=== PATIENT | female | born 1935 | race Caucasian/White ===

== ENCOUNTER 2018-11-01 07:35 | Emergency (ER) | payer MEDICARE, BC ==
[~2018-11-01] VITALS: Ht 149.9 cm; Wt 60.0 kg
[~2018-11-01 07:35] MED LIST: CELEXA; CEPH-443 PO; DIOVAN; LASIX; LIPITOR; NEXUM; PRED20TA PO; PREMARIN
[2018-11-01 07:41] VITALS: Ht 149.9 cm; Wt 60.0 kg
[2018-11-01] MEDS ORDERED: predniSONE 20 MG TAB PO ONE (08:30)
[2018-11-01 08:44] VITALS: BP 145/77; PULSE 76; RESP 20
== END 2018-11-01 08:46 | disposition home or self-care (01) ==
LOC: E/R 07:35
DX: H01.004 Unspecified blepharitis left upper eyelid (principal); I10 Essential (primary) hypertension
CPT/HCPCS: 99283; J7512